=== PATIENT | male | born 1990 | race African-American/Black ===

== ENCOUNTER 2020-08-06 12:00 | Emergency (ER) | payer BC, OTHER ==
[~2020-08-06] VITALS: Ht 188 cm; Wt 93.0 kg
[2020-08-06 12:36] VITALS: BP 129/83
[2020-08-06] MEDS ORDERED: TETANUS-DIPTH-ACEL PERTUSSIS 0.5ML SYR Tdap IM ONE (13:15)
== END 2020-08-06 13:36 | disposition home or self-care (01) ==
LOC: ER 12:00
DX: S61.235A Puncture wound without foreign body of left ring finger without damage to nail, initial encounter (principal); S61.254A Open bite of right ring finger without damage to nail, initial encounter; W54.0XXA Bitten by dog, initial encounter; Y93.89 Activity, other specified; Y92.89 Other specified places as the place of occurrence of the external cause; Y99.8 Other external cause status
CPT/HCPCS: 73140; 90471; 90715